=== PATIENT | female | born 1995 | race Caucasian/White ===

== ENCOUNTER 2021-11-11 13:01 | Outpatient (CLI) | payer SELFPAY | END 2021-11-11 23:59 | disposition EMS.NT | LOC: EMS 13:01 | DX: Z04.1 Encounter for examination and observation following transport accident (principal) ==

== ENCOUNTER 2022-06-21 14:46 | Outpatient (CLI) | payer OTHER ==
--- NOTE | 2022-06-21 20:12 | Ultrasound Report ---
PROCEDURE: OB First Trimester INDICATIONS: SUPERVISION OF OUTSIDE/PRIOR DATING DATA: Last menstrual period (LMP): 04/20/2022. LMP-based estimated date of delivery (SAMI): 01/25/2023. First dating scan (date and location): 06/21/2022. Estimated date of delivery (SAMI) from first dating scan: 01/23/2023. TECHNIQUE: Real-time scanning was performed of the fetus and maternal pelvic organs, with image documentation. COMPARISON: None FINDINGS: Single living intrauterine . Embryo: Torreon-rump length of 2.42 cm, corresponding to gestational age of 9 weeks 1 day Heart rate: 160 bpm A small subchorionic hemorrhage is present measuring up to 1.6 cm, less than 50% of the circumference of the gestational sac. Measurement variability in dating: +/- 4 weeks by LMP, +/- 7 days by mean sac diameter (use before 6 weeks gestation if crown-rump length not able to be measured), +/- 5 days by crown-rump length (6-12 weeks gestation). Maternal organs: Ovaries are unremarkable. Transabdominal measurement of the cervix of 2.4 cm, may b e artifactually decreased due to obliquity of the cervix. IMPRESSION: 1. Single living intrauterine . Torreon-rump length corresponds to a gestational age of 9 week s 1 day. 2. Transabdominal measurement of the cervix of 2.4 cm, may be artifactually decreased due to technica l factors. The cervix is closed. Attention on follow-up is recommended. Reviewed by: Bradford Cody MD on 06/21/2022 7:10 PM [facility] Approved by: Bradford Cody MD on 06/21/2022 7:10 PM [facility] Station ID: [id number]
== END 2022-06-21 14:47 | disposition home or self-care (01) ==
LOC: DI 14:46
PROVIDERS: ATTEND Obstetrics & Gynecology
DX: Z34.81 Encounter for supervision of other normal pregnancy, first trimester (principal)